=== PATIENT | female | born 1980 | race African-American/Black ===

== ENCOUNTER → 2020-11-07 10:21 | Outpatient (CLI) | payer BC, SELFPAY ==
--- NOTE | ~2020-11-07 | US_ITS ---
EXAMINATION: US pelvic complete DATE: 11/07/2020 10:46 INDICATION: Excessive and frequent menstruation TECHNIQUE: Multiple transabdominal sonographic images of the pelvis were obtained. COMPARISON: None. FINDINGS: The uterus measures 14.5 x 6.9 x 7.5 cm. There are multiple uterine fibroids. The largest i s an 8.4 x 5.3 x 5.3 cm fibroid of the posterior uterine body which exerts mass effect on the endomet rial canal. The endometrial complex measures 9 mm. The right ovary measures 3.8 x 2.0 x 2.7 cm. The l eft ovary measures 4.1 x 3.6 x 3.0 cm. There is normal vascular flow in the ovaries. There is a 7.1 x 3.8 x 5.5 cm fluid collection of the left adnexa. IMPRESSION: 1. Enlarged fibroid uterus. 2. Moderate amount of free fluid in the pelvis. Reviewed, dictated and finalized at location B.
== END ==
PROVIDERS: PCP Physician Assistant; Visit Provider Obstetrics & Gynecology
DX: N92.6 Irregular menstruation, unspecified (principal); D25.9 Leiomyoma of uterus, unspecified
CPT/HCPCS: 76856

== ENCOUNTER → 2020-12-02 01:42 | Outpatient (CLI) | payer BC, SELFPAY ==
[2020-12-02 18:55] LABS: SARS-CoV-2 RNA PCR Negative
== END ==
PROVIDERS: PCP Physician Assistant; Visit Provider Obstetrics & Gynecology
DX: Z01.812 Encounter for preprocedural laboratory examination (principal); Z20.822 Contact with and (suspected) exposure to COVID-19
CPT/HCPCS: C9803; U0003; U0005

== ENCOUNTER 2020-12-02 09:21 | Outpatient (CLI) | payer BC, SELFPAY ==
--- NOTE | 2020-12-02 10:04 | ECG_ITS ---
Measurements Intervals [place] Rate: 72 P: 62 MN: 133 QRS: 34 QRSD: 86 T: 60 QT: 372 QTc: 408 Interpretive Statements SINUS RHYTHM BORDERLINE ST-T WAVE ABNORMALITY- INF/LAT LEADS BORDERLINE ECG Electronically Signed On 12-02-2020 10:34:41 CDT by Shayne Hansen D.O.
[2020-12-02 10:28] LABS: Anion Gap 8 mmol/L (8-16); Blood Urea Nitrogen 19 mg/dL (7-17); Carbon Dioxide 23 mmol/L (22-30); Chloride 108 mmol/L (98-107); Estimated Glomerular Filt Rate > 60; Glucose 93 mg/dL (65-105); Potassium 3.5 mmol/L (3.4-5.0); Sodium 139 mmol/L (137-145)
== END 2020-12-02 09:22 | disposition home or self-care (01) ==
PROVIDERS: PCP Physician Assistant; Visit Provider Anesthesiology
DX: R01.1 Cardiac murmur, unspecified (principal); T50.2X5A Adverse effect of carbonic-anhydrase inhibitors, benzothiadiazides and other diuretics, initial encounter; Z01.818 Encounter for other preprocedural examination; R94.31 Abnormal electrocardiogram [ECG] [EKG]
CPT/HCPCS: 36415; 80048; 93005

== ENCOUNTER 2020-12-05 05:57 | Day surgery (SDC) | payer BC, SELFPAY ==
[2020-12-01 16:57] VITALS: BMI 43.9
--- NOTE | 2020-12-05 11:40 | PM.HPGS ---
History of Present Illness History of Present Illness Consent: Risks, benefits, and alternatives have been discussed and questions answered. Patient agrees to proceed with procedure. Chief complaint: fibroids, abnormal uterine bleeding Narrative: Pratima Espinoza is a 40 year old female A2 with heavy cycles. Patient reports wearing pads and tampons with cycle. Three out of the 7 days are heavy. Review of Systems Constitutional: Constitutional: Reports no additional constitutional complaints and Reports fatigue Cardiovascular: Cardiovascular: Reports no additional cardiovascular complaints Respiratory: Respiratory: Reports no additional respiratory complaints Gastrointestinal: Gastrointestinal: Reports no additional gastrointestinal complaints Genitourinary: Genitourinary: Reports no additional female genitourinary complaints PMFSH Past Medical History Medical History (Updated 12/05/20 @ 11:45 by Jeff Rizo MD) Abnormal uterine bleeding due to leiomyoma of uterus Depression Fibroid GERD (gastroesophageal reflux disease) Migraine Social History Social History Smoking status: Never smoker Alcohol intake: current Living arrangements: alone Spiritual care concerns: No Meds Home Medications and Allergies Home Medications Medication Instructions Recorded Confirmed Type hydrochlorothiazide 12.5 mg PO DAILY PRN 12/01/20 12/01/20 History multivitamin [Daily Multivitamin] 1 tablet PO DAILY 12/01/20 12/01/20 History venlafaxine 150 mg PO DAILY 12/01/20 12/01/20 History Allergies Allergy/AdvReac Type Severity Reaction Status Date / Time latex Allergy Intermediate Hives Verified 12/01/20 17:08 Exam Resp: Auscultation: clear to auscultation bilaterally Cardio: Rate: regular rate Rhythm: regular rhythm GI: Other: enlarged uterus palpable above pubic bone. : Bimanual exam- vagina & uterus: uterine mobility normal and enlarged Assessment and Plan Assessment and plan (1) Abnormal uterine bleeding due to leiomyoma of uterus: Code(s): N93.9 - Abnormal uterine and vaginal bleeding, unspecified; D25.9 - Leiomyoma of uterus, unspecified Status: Acute Assessment and Plan: scheduled for a hysteroscopy dilation and curettage with possible myosure. risk and benefits reviewed with patient in detail.
[2020-12-05] MEDS: ACETAMINOPHEN 500 MG TABLET 1000 MG PO (13:16)
[2020-12-05 13:30] VITALS: BP 147/94; PULSE 93; RESP 18; TEMP 36; O2SAT 98; BMI 43.9
[2020-12-05] MEDS: LACTATED RINGERS 1,000 ML 30 ML IV CONT (13:40)
--- NOTE | 2020-12-05 13:55 | WPDANESEPPF ---
Anes - Initial Pre Proc Eval Procedure: Operation Date: 12/05/20 14:45 Proposed Procedures p Hysteroscopy Dilation and Curettage, Possible Myosure - Jeff Rizo MD Date/Time: 12/05/20 13:55 Surgeon: Jeff Rizo MD Pre Op Diagnosis: fibroids, abnormal uterine bleeding Patient Data Age: 40 Gender: F Height: 1.57 m Weight: 109 kg Allergies Allergy/AdvReac Type Severity Reaction Status Date / Time latex Allergy Intermediate Hives Verified 12/05/20 13:27 Home Medications Medication Instructions Recorded Confirmed Type hydrochlorothiazide 12.5 mg PO DAILY PRN 12/01/20 12/01/20 History multivitamin [Daily Multivitamin] 1 tablet PO DAILY 12/01/20 12/01/20 History venlafaxine 150 mg PO DAILY 12/01/20 12/01/20 History Patient hx anesthesia problems: none Family hx anesthesia problems: none PMFSH Past Medical History Medical History (Updated 12/05/20 @ 11:45 by Jeff Rizo MD) Abnormal uterine bleeding due to leiomyoma of uterus Depression Fibroid GERD (gastroesophageal reflux disease) Migraine Social History Social History Smoking status: Never smoker Alcohol intake: current Living arrangements: alone Spiritual care concerns: No Anes - Eval Final PreProcedure Day of Procedure 12/05/20 13:55 Patient weight: morbidly obese Heart: regular rate and rhythm Lungs: clear to auscultation and normal air movement Airway: Mallampati scale class II Neurological: alert and oriented Last oral intake: >/= 8 hours ASA classification: III Emergent: no Anesthetic plan: proceed Anesthesia type and monitoring: general GIVS and standard monitoring Informed Consent: The patient's anesthetic plan and its attendant risks and benefits were discussed with the patient/family/POA. Questions were solicited and answers provided to the satisfaction of the patient/family/POA.
--- NOTE | 2020-12-05 14:24 | WPDHPUPDATE1 ---
History and Physical Update Update Date/Time: 12/05/20 14:24 History and Physical has been reviewed, including an updated exam of the patient. There are NO changes in the patient's condition. Risks, benefits, and alternatives have been discussed and questions answered. Patient agrees to proceed with procedure.
--- NOTE | 2020-12-05 14:45 | SUR.OPER ---
hysteroscopy irrigation 600ml ivns in and 500ml ivns out
[2020-12-05 14:53] VITALS: BP 132/74; PULSE 91; RESP 16; O2SAT 95
[2020-12-05 15:10] VITALS: BP 141/75; PULSE 70; RESP 16
[2020-12-05 15:20] VITALS: BP 141/87; PULSE 93; RESP 16; O2SAT 95
[2020-12-05 15:50] VITALS: BP 148/94; PULSE 67; RESP 16
--- NOTE | 2020-12-05 15:51 | PM.PROC ---
Procedure Note - Detailed Date of procedure: 12/05/20 Pre-op diagnosis: fibroids, abnormal uterine bleeding Post-op diagnosis: same Procedure performed: hysteroscopy dilation and curettage Description of procedure: Patient was taken to the at the OR with IV running she was prepared and draped in a normal sterile fashion. And placed in a lithotomy position a bivalve speculum was placed into the vagina. The anterior lip of the cervix was grasped with a single-tooth tenaculum the cervix was injected at the 2 and 10 o'clock position with 5cc of lidocaine bilaterally the uterus was sounded to 10 cm and the cervix was serially dilated with Hegar dilators to a 8 . The hysteroscope was introduced and noted polyp in the posterior wall and the anterior wall of the uterus. Hysteroscope was removed and a sharp curettage was performed in all 4 quadrants of the uterus and sent to pathology. Patient tolerated the procedure well was taken to recovery room in stable condition. Anesthesia: local Surgeon: Jeff Rizo MD Estimated blood loss (mL): 10 Drains: No Packing: No Pathology: yes Complications: None Condition: stable Disposition: observation Findings: Large uterus
== END 2020-12-05 16:34 | disposition home or self-care (01) ==
PROVIDERS: PCP Physician Assistant; Visit Provider Obstetrics & Gynecology
PROC: 0U5B8ZZ Destruction of Endometrium, Via Natural or Artificial Opening Endoscopic (ICD-10-PCS; CPT 58563; principal; 2020-12-05 14:45)
DX: N93.9 Abnormal uterine and vaginal bleeding, unspecified (principal); N84.0 Polyp of corpus uteri; K21.9 Gastro-esophageal reflux disease without esophagitis; F32.9 Major depressive disorder, single episode, unspecified; E66.01 Morbid (severe) obesity due to excess calories; Z68.41 Body mass index [BMI] 40.0-44.9, adult
CPT/HCPCS: 58558; 88305; A9270; J2250; J2704; J3010; J7120

== ENCOUNTER → 2021-02-03 00:42 | Outpatient (CLI) | payer BC, SELFPAY ==
[2021-02-03 17:38] LABS: SARS-CoV-2 RNA PCR Negative
== END ==
PROVIDERS: PCP Physician Assistant; Visit Provider Obstetrics & Gynecology
DX: Z01.812 Encounter for preprocedural laboratory examination (principal); Z20.822 Contact with and (suspected) exposure to COVID-19
CPT/HCPCS: C9803; U0003; U0005

== ENCOUNTER 2021-02-03 08:52 | Outpatient (CLI) | payer BC, SELFPAY ==
[2021-02-03 09:32] LABS: Hematocrit 35.2 % (37.0-47.0); Hemoglobin 10.2 g/dL (12.0-15.0)
[2021-02-03 09:51] LABS: Anion Gap 8 mmol/L (8-16); Blood Urea Nitrogen 13 mg/dL (7-17); Calcium 8.8 mg/dL (8.4-10.2); Carbon Dioxide 26 mmol/L (22-30); Chloride 104 mmol/L (98-107); Estimated Glomerular Filt Rate > 60; Glucose 94 mg/dL (65-105); Potassium 4.1 mmol/L (3.4-5.0); Sodium 138 mmol/L (137-145)
== END 2021-02-03 08:53 | disposition home or self-care (01) ==
LOC: ANHSURGERY 08:55
PROVIDERS: Anesthesiology; PCP Physician Assistant; Visit Provider Obstetrics & Gynecology
DX: D21.9 Benign neoplasm of connective and other soft tissue, unspecified (principal); D64.9 Anemia, unspecified; T50.2X5A Adverse effect of carbonic-anhydrase inhibitors, benzothiadiazides and other diuretics, initial encounter; Z01.818 Encounter for other preprocedural examination
CPT/HCPCS: 36415; 80048; 85014; 85018; 86850; 86900; 86901

== ENCOUNTER 2021-02-06 07:38 | Inpatient (IN) | payer BC, SELFPAY ==
[2021-01-30 18:45] VITALS: BMI 44.8
--- NOTE | 2021-02-05 14:35 | PM.IMHP ---
H&P: HPI History of Present Illness Date/Time: 02/05/21 14:35 40 y/o A2 with long history of heavy cycles with fibroids. Patient reports cycles are getting heavier and harder to deal with bleeding. Patient reports wearing pad and tampo a the sametime changing every 1-2 hours with blood clots. Patient reports also missing work due to this. An ultrasound shows multiple fibroid uterus. Chief Complaint: heavy cycles Review of Systems Constitutional: Constitutional: Reports fatigue Genitourinary: Genitourinary: Reports nocturia, Reports dysmenorrhea and Reports pelvic pain PMF Past Medical History Medical History (Updated 02/05/21 @ 14:40 by Jeff Rizo MD) Abnormal uterine bleeding due to leiomyoma of uterus Arthritis Depression Fibroid GERD (gastroesophageal reflux disease) HTN (hypertension) Migraine Morbid obesity with BMI of 40.0-44.9, adult Status post hysteroscopy Social History Social History Smoking status: Never smoker Second hand tobacco smoke exposure: No Alcohol intake: current Alcohol use details: occassionally/socially Substance use: never Substance use type: does not use Spiritual care concerns: No Meds Home Medications and Allergies Home Medications Medication Instructions Recorded Confirmed Type hydrochlorothiazide 12.5 mg PO PRN PRN 12/01/20 01/30/21 History venlafaxine 150 mg PO DAILY 12/01/20 01/30/21 History [id number] sodium 1 tablet PO DAILY 01/30/21 01/30/21 History [Ferralet 90] Allergies Allergy/AdvReac Type Severity Reaction Status Date / Time latex Allergy Intermediate Hives Verified 01/30/21 20:00 artificial cinnamon Allergy Severe Anaphylaxis Uncoded 01/30/21 20:00 Exam Const: General: cooperative and well groomed Nutritional Appearance: obese Orientation/consciousness: patient oriented x3 Chest: Breast/axilla inspection: normal inspection of the breasts Resp: Auscultation: clear to auscultation bilaterally Cardio: Rate: regular rate Rhythm: regular rhythm GI: Inspection: obesity : External Female Exam: normal external appearance Speculum Exam - Vagina: normal appearance of the vagina Speculum Exam - Cervix: Cervical os closed and Nulliparous cervix present Bimanual exam- vagina & uterus: enlarged Assessment and Plan Assessment and plan (1) Abnormal uterine bleeding due to leiomyoma of uterus: Code(s): N93.9 - Abnormal uterine and vaginal bleeding, unspecified; D25.9 - Leiomyoma of uterus, unspecified Status: Acute Assessment and Plan: scheduled for a Total abdominal hysterectomy. Risk and benefits reviewed with patient in detail including bleeding, infection, trauma , and damage to surrounding organs,
--- NOTE | 2021-02-05 14:36 | WPDANESEPPF ---
Anes - Initial Pre Proc Eval Procedure: Operation Date: 02/06/21 12:00 Proposed Procedures p Total Abdominal Hysterectomy - Jeff Rizo MD Date/Time: 02/05/21 14:36 Surgeon: Jeff Rizo MD Pre Op Diagnosis: fibroids Patient Data Age: 40 Gender: F Height: 1.57 m Weight: 111.13 kg Allergies Allergy/AdvReac Type Severity Reaction Status Date / Time latex Allergy Intermediate Hives/Swelling Verified 02/06/21 10:34 with condoms artificial cinnamon Allergy Severe Anaphylaxis Uncoded 01/30/21 20:00 Home Medications Medication Instructions Recorded Confirmed Type hydrochlorothiazide 12.5 mg PO PRN PRN 12/01/20 02/06/21 History venlafaxine 150 mg PO DAILY 12/01/20 02/06/21 History [id number] sodium 1 tablet PO DAILY 01/30/21 02/06/21 History [Ferralet 90] Patient hx anesthesia problems: none Family hx anesthesia problems: none PMFSH Past Medical History Medical History (Updated 02/05/21 @ 14:40 by Jeff Rizo MD) Abnormal uterine bleeding due to leiomyoma of uterus Arthritis Depression Fibroid GERD (gastroesophageal reflux disease) HTN (hypertension) Migraine Morbid obesity with BMI of 40.0-44.9, adult Status post hysteroscopy Social History Social History Smoking status: Never smoker Second hand tobacco smoke exposure: No Alcohol intake: current Alcohol use details: occassionally/socially Substance use: never Substance use type: does not use Living arrangements: alone Spiritual care concerns: No Anes - Eval Final PreProcedure Day of Procedure 02/05/21 14:36 Patient weight: morbidly obese Heart: regular rate and rhythm Lungs: clear to auscultation and normal air movement Airway: Mallampati scale class II Neurological: alert and oriented Last oral intake: >/= 8 hours ASA classification: III Emergent: no Anesthetic plan: proceed Anesthesia type and monitoring: general ETT Informed Consent: The patient's anesthetic plan and its attendant risks and benefits were discussed with the patient/family/POA. Questions were solicited and answers provided to the satisfaction of the patient/family/POA.
[2021-02-06] VITALS (14 sets, daily range): BP systolic 125–155; BP diastolic 73–95; PULSE 67–99; RESP 14–28; TEMP 36.2–37.3; O2SAT 93–100
[2021-02-06] MEDS: ACETAMINOPHEN 500 MG TABLET 1000 MG PO (11:04)
[2021-02-06] MEDS: LACTATED RINGERS 1,000 ML 30 ML IV CONT ×2 (11:05→14:41)
--- NOTE | 2021-02-06 11:44 | WPDHPUPDATE1 ---
History and Physical Update Update Date/Time: 02/06/21 11:44 History and Physical has been reviewed, including an updated exam of the patient. There are NO changes in the patient's condition. Risks, benefits, and alternatives have been discussed and questions answered. Patient agrees to proceed with procedure.
[2021-02-06] MEDS: KETOROLAC 15 MG/ML VIAL (*BKC) IV PUSH (11:53)
[2021-02-06] MEDS: ceFAZolin 2 GM/D5W 50 ML 2 GM/50 ML BAG IVPB (12:40)
[2021-02-06] MEDS: fentaNYL CITRATE INJ (*CRX) 100 MCG/2 ML VIAL 25 MCG IV PUSH ×6 (15:09→16:23)
--- NOTE | 2021-02-06 15:25 | SUR.PHASEI ---
[facility]AR faxed at [phone], OB 2nd service secretary notified
[2021-02-06] MEDS: oxyCODONE HCL (*CRX) 5 MG TAB IR PO (16:40)
[2021-02-06] MEDS: MORPHINE SULFATE (*CRX) 4 MG/ML INJ IV PUSH (17:31)
[2021-02-06] MEDS: KETOROLAC 30 MG/ML VIAL (*BKC) IV PUSH ×2 (17:38→23:37)
[2021-02-06] MEDS: METOCLOPRAMIDE HCL INJ 10 MG/2 ML VIAL IV PUSH (17:42)
[2021-02-06] MEDS: HYDROcodone/acetaminophen (*CRX) 10-325 MG TABLET 1 TAB PO (18:52)
[2021-02-06] MEDS: DEXTROSE 5%/LACTATED RINGERS 1,000 ML 125 ML IV CONT (23:39)
[2021-02-07] VITALS: BP 123/72; PULSE 110; RESP 20; TEMP 36.9; O2SAT 95
[2021-02-07 04:30] VITALS: BP 123/78; PULSE 98; RESP 20; TEMP 36.7; O2SAT 99
[2021-02-07] MEDS: KETOROLAC 30 MG/ML VIAL (*BKC) IV PUSH (05:54)
[2021-02-07 06:06] LABS: Basophils Percent Auto 0.1 % (0.2-1.2); Hematocrit 28.2 % (37.0-47.0); Hemoglobin 8.4 g/dL (12.0-15.0); Immature Granulocyte Absolute 0.08 K/mm3 (0.00-0.031); Immature Granulocyte Percent A 0.5 % (0-0.5); Lymphocytes Absolute Auto 1.53 K/mm3 (0.9-3.2); Mean Corpuscular HGB Conc 29.8 g/dl (32-36); Mean Corpuscular Hemoglobin 22.2 pg (26-34); Mean Corpuscular Volume 74.6 fl (80-100); Mean Platelet Volume 10.5 fl (7.4-10.4); Monocytes Absolute Auto 0.8 K/mm3 (0.1-0.6); Monocytes Percent Auto 5.3 % (2.6-8.5); Neutrophils Absolute Auto 12.8 K/mm3 (1.3-6.7); Neutrophils Percent Auto 84.1 % (45.5-73.1); Platelet Count Result 238 k/mm3 (150-375); Red Blood Count 3.78 M/mm3 (4.2-5.4); Red Cell Distribution Width 20.4 % (11.5-14.5); White Blood Count 15.3 K/mm3 (4.5-10.0)
[2021-02-07 06:18] LABS: Anion Gap 8 mmol/L (8-16); Blood Urea Nitrogen 11 mg/dL (7-17); Calcium 8.6 mg/dL (8.4-10.2); Carbon Dioxide 25 mmol/L (22-30); Chloride 102 mmol/L (98-107); Estimated CRCL calculation 88 ml/min; Estimated Glomerular Filt Rate > 60; Glucose 146 mg/dL (65-110); Potassium 4.2 mmol/L (3.4-5.0); Sodium 135 mmol/L (137-145)
[2021-02-07 08:30] VITALS: BP 129/74; PULSE 97; RESP 22; TEMP 37.1; O2SAT 100
[2021-02-07 08:36] LABS: Hypochromasia 2+ (NORMAL); Large Platelets Present; Platelet Estimate Adequate (Adequate)
--- NOTE | 2021-02-07 09:34 | PM.GYNPNOP ---
SUPERVISOR FILES - A/P Postoperative Procedures: Procedures Operation Date: 02/06/21 12:00 Actual Procedure Side Surgeon p Total Abdominal Hysterectomy Not Applicable Jeff Rizo MD Postoperative day: 1 Postoperative status: doing well Postoperative plan: routine post-op care Time Spent With Patient Time: Total time spent is greater than 50% in coordination of care (as documented) at patient's floor/unit and/or counseling patient: Time with patient: less than 15 minutes SUPERVISOR FILES- PN:Subj Post-Op Subjective Date/time seen: 02/07/21 09:34 Subjective: patient reports feeling better, patient has no complaints and pain is well controlled Exam Narrative: Exam Narrative: bandage removed incision c/d/i abdomen soft, appropriately tender SUPERVISOR FILES - PN: Obj Data Vital Signs Vital Signs: Vital Signs - 24 hr 02/06/21 10:37 02/06/21 14:41 02/06/21 14:55 Temperature 97.2 F L 99.1 F Pulse Rate 85 80 75 Respiratory Rate 16 14 28 H Blood Pressure 138/85 141/83 H 129/80 Pulse Oximetry 100 99 98 02/06/21 15:10 02/06/21 15:25 02/06/21 15:40 Temperature Pulse Rate 74 70 67 Respiratory Rate 28 H 24 H 26 H Blood Pressure 135/87 129/82 130/81 Pulse Oximetry 96 98 98 02/06/21 15:55 02/06/21 16:10 02/06/21 16:25 Temperature Pulse Rate 75 72 78 Respiratory Rate 22 H 22 H 18 Blood Pressure 125/86 125/79 128/81 Pulse Oximetry 100 99 99 02/06/21 16:40 02/06/21 16:50 02/06/21 17:00 Temperature 97.9 F Pulse Rate 72 72 96 Respiratory Rate 16 16 16 Blood Pressure 130/80 155/95 H Pulse Oximetry 99 99 95 02/06/21 18:45 02/06/21 20:00 02/07/21 00:00 Temperature 98.5 F 98.5 F Pulse Rate 99 98 110 H Respiratory Rate 20 20 Blood Pressure 149/85 H 141/73 H 123/72 Pulse Oximetry 93 96 95 02/07/21 04:30 02/07/21 08:30 Temperature 98.1 F 98.7 F Pulse Rate 98 97 Respiratory Rate 20 22 H Blood Pressure 123/78 129/74 Pulse Oximetry 99 100 Intake/Output Intake/Output: Intake & Output 02/04/21 02/05/21 02/06/21 02/07/21 23:59 23:59 23:59 23:59 Intake Total 300 400 Output Total 150 900 Balance 150 -500 Meds/Results Medications: Active Medications Generic Name Dose Route Start Last Admin Trade Name Freq PRN Reason Stop Dose Admin Hydrocodone Bitart/Acetaminophen 1 tab 02/06/21 14:23 Hydrocodone/Acetaminophen (*Crx) 5-325 Mg Tablet PO Q3H PRN Pain Rated 5 or Less Hydrocodone Bitart/Acetaminophen 1 tab 02/06/21 14:23 02/06/21 18:52 Hydrocodone/Acetaminophen (*Crx) 10-325 Mg Tablet PO 1 tab Q3H PRN Administration Pain Rated 6 or Greater Hydrochlorothiazide 12.5 mg 02/06/21 14:25 Hydrochlorothiazide 12.5 Mg Capsule PO PRN PRN Edema Ibuprofen 600 mg 02/06/21 14:23 Ibuprofen 600 Mg Tablet PO Q6H PRN Cramping Ketorolac Tromethamine 30 mg 02/06/21 14:23 02/07/21 05:54 Ketorolac 30 Mg/Ml Vial (*Bkc) IV PUSH 02/11/21 14:24 30 mg Q6H PRN Administration Pain Rated 4-6 Metoclopramide HCl 10 mg 02/06/21 14:23 02/06/21 17:42 Metoclopramide Hcl Inj 10 Mg/2 Ml Vial IV PUSH 10 mg Q6H PRN Administration Nausea Morphine Sulfate 4 mg 02/06/21 14:23 02/06/21 17:31 Morphine Sulfate (*Crx) 4 Mg/Ml Inj IV PUSH 4 mg Q4H PRN Administration Pain Rated 7-10 Naloxone HCl 0.1 mg 02/06/21 14:23 Naloxone Hcl 0.4 Mg/Ml Vial IV PUSH Q2M PRN Respiratory rate less than 10 Ondansetron HCl 4 mg 02/06/21 14:23 Ondansetron Inj 4 Mg/2 Ml Vial IV PUSH Q6H PRN Nausea Simethicone 80 mg 02/06/21 14:23 Simethicone 80 Mg Tab.Chew PO Q2H PRN Gas Venlafaxine HCl 150 mg 02/07/21 09:00 Venlafaxine Hcl Xr 75 Mg Cap.Er.24h PO DAILY NATALIE Labs CBC & Chem 7: 02/07/21 04:57 02/07/21 04:57 Labs: Laboratory Results - last 24 hr 02/07/21 02/07/21 04:57 04:57 WBC 15.3 H RBC 3.78 L Hgb 8.4 L Hct 28.2 L MCV 74.6 L MCH 22.2 L
[2021-02-07] MEDS: HYDROcodone/acetaminophen (*CRX) 10-325 MG TABLET 1 TAB PO ×4 (09:54→23:24)
[2021-02-07] MEDS: VENLAFAXINE HCL XR 75 MG CAP.ER.24H 150 MG PO (09:54)
--- NOTE | 2021-02-07 11:34 | P.PNAN_ITS ---
Anes - Prog Note Post-Op Date/Time: 02/07/21 11:34 Cardiovascular status: normal Respiratory status: normal Airway patency: baseline Mental status: baseline Post-Op hydration status: normal Vital Signs: Last Vital Signs Temp 37.1 C 02/07/21 08:30 Pulse 97 02/07/21 08:30 Resp 22 H 02/07/21 08:30 BP 129/74 02/07/21 08:30 Pulse Ox 100 02/07/21 08:30 Pain Score (VAS): 0 I/O: Intake & Output 02/06/21 02/07/21 02/07/21 23:59 07:59 15:59 Intake Total 250 400 Output Total 150 900 100 Balance 100 -500 -100 Laboratory Tests 02/07/21 04:57 02/07/21 04:57 02/07/21 02/07/21 04:57 04:57 WBC 15.3 H RBC 3.78 L Hgb 8.4 L Hct 28.2 L MCV 74.6 L MCH 22.2 L MCHC 29.8 L RDW 20.4 H Plt Count 238 MPV 10.5 H Immature Gran % (Auto) 0.5 Neut % (Auto) 84.1 H Lymph % (Auto) 10.0 L [place] % (Auto) 5.3 Eos % (Auto) 0.0 Baso % (Auto) 0.1 L Lymph # (Auto) 1.53 [place] # (Auto) 0.8 H Eos # (Auto) 0.0 Baso # (Auto) 0.0 Abs Immat Gran (auto) 0.08 H Absolute Neuts (auto) 12.8 H Absolute Nucleated RBC 0.0 Nucleated RBC % 0.0 Platelet Estimate Adequate Large Platelets Present Hypochromasia 2+ Sodium 135 L Potassium 4.2 Chloride 102 Carbon Dioxide 25 Anion Gap 8 BUN 11 Creatinine 0.90 Estim Creat Clear Calc 88 Estimated GFR > 60 Glucose 146 H Calcium 8.6 Post-procedural complaints: none Patient Feedback: Patient satisfied with anesthetic care.
[2021-02-07 12:00] VITALS: BP 125/78; PULSE 89; RESP 20; TEMP 36.8; O2SAT 99
[2021-02-07] MEDS: IBUPROFEN 600 MG TABLET PO ×2 (13:46→23:23)
--- NOTE | 2021-02-07 19:13 | OP_ITS ---
DATE OF PROCEDURE: 02/06/2021 PREOPERATIVE DIAGNOSIS: Abnormal uterine bleeding, fibroid. POSTOPERATIVE DIAGNOSIS: Abnormal uterine bleeding, fibroid. PROCEDURE: Total abdominal hysterectomy. ESTIMATED BLOOD LOSS: 150 mL. URINE OUTPUT: 150 cc of clear urine. FINDINGS: A large fibroid uterus. DESCRIPTION OF PROCEDURE: The patient was prepped and draped in the usual sterile fashion for abdominal procedure. An incision was made into the abdomen down to the subcutaneous tissue, muscular fascia, and peritoneum. Once inside the abdominal cavity a self-retaining retractor was placed to expose the pelvic cavity and the bowel packed away with 3 lap sponges. The uterus was then identified and grasped at the fundus with a single-tooth tenaculum with upward traction. The round ligaments on either side were identified and individually dissected and ligated with 0 Vicryl suture and divided. This allowed us to then create a bladder flap by both blunt and sharp dissection. The fallopian tube and ovarian ligament were isolated through the broad ligament from the uterine body and ligated with LigaSure device and divide as well. We then skeletonized the uterine vessels on either side and carefully dissected the bladder flap anteriorly. Posteriorly, the peritoneum was dissected down for the uterosacral ligament pain. The LigaSure was then placed at each isthmic portion of the cervical body junction where the uterine arteries joined the uterus. These were clamped and ligated and divided with the LigaSure device. The remainder of the uterus was then removed by clamping ligation technique using the LigaSure device. For better exposure secondary to the enlarged uterus, the uterus was transected at the cervix. The uterosacral ligaments were then clamped, transected, and suture ligated with 0 Vicryl suture. The cervix was then removed. The vaginal cuff was closed in the 0 Vicryl suture in a running locked fashion. Hemostasis was then inspected and secured throughout the entire area. The abdomen was copiously irrigated and the pedicles were reinspected for hemostasis. Ovaries were left in situ and descended to the sidewalls. The lap sponges were then removed and the self retraining retractor was removed. The sponge count was correct x2 at this time and the Blake catheter noted clear urine. The fascia was then closed with 0 Vicryl in a running continuous fashion. The subcutaneous tissue was irrigated and closed with 3-0 plain gut. The skin was closed with 4-0 Vicryl suture. Hemostasis was assured throughout the entire layers and the incision was covered with Dermabond glue. The patient tolerated the procedure well and was taken to recovery room in stable condition. Jacobo I MT: Aramis
[2021-02-07 20:00] VITALS: BP 120/76; PULSE 81; RESP 18; TEMP 36.3; O2SAT 94
[2021-02-08] MEDS: IBUPROFEN 600 MG TABLET PO (06:18)
[2021-02-08] MEDS: HYDROcodone/acetaminophen (*CRX) 10-325 MG TABLET 1 TAB PO (06:19)
[2021-02-08 09:00] VITALS: BP 135/83; PULSE 98; RESP 20; TEMP 36
--- NOTE | 2021-02-08 09:24 | PM.GYNPNOP ---
INTERNAL MEDICINE VETERINARY TECHNICIAN - A/P Postoperative Procedures: Procedures Operation Date: 02/06/21 12:00 Actual Procedure Side Surgeon p Total Abdominal Hysterectomy Not Applicable Jeff Rizo MD Postoperative day: 2 Postoperative status: doing well Postoperative plan: routine post-op care and discharge Time Spent With Patient Time: Total time spent is greater than 50% in coordination of care (as documented) at patient's floor/unit and/or counseling patient: Time with patient: less than 15 minutes INTERNAL MEDICINE VETERINARY TECHNICIAN- PN:Subj Post-Op Subjective Date/time seen: 02/08/21 09:24 Subjective: patient reports feeling better, patient has no complaints and pain is well controlled Exam Narrative: Exam Narrative: inc c/d/i INTERNAL MEDICINE VETERINARY TECHNICIAN - PN: Obj Data Vital Signs Vital Signs: Vital Signs - 24 hr 02/07/21 12:00 02/07/21 20:00 02/08/21 09:00 Temperature 98.3 F 97.3 F L 96.8 F L Pulse Rate 89 81 98 Respiratory Rate 20 18 20 Blood Pressure 125/78 120/76 135/83 Pulse Oximetry 99 94 Intake/Output Intake/Output: Intake & Output 02/05/21 02/06/21 02/07/21 02/08/21 23:59 23:59 23:59 23:59 Intake Total 300 400 Output Total 150 1550 Balance 150 -1150 Meds/Results Medications: Active Medications Generic Name Dose Route Start Last Admin Trade Name Freq PRN Reason Stop Dose Admin Hydrocodone Bitart/Acetaminophen 1 tab 02/06/21 14:23 Hydrocodone/Acetaminophen (*Crx) 5-325 Mg Tablet PO Q3H PRN Pain Rated 5 or Less Hydrocodone Bitart/Acetaminophen 1 tab 02/06/21 14:23 02/08/21 06:19 Hydrocodone/Acetaminophen (*Crx) 10-325 Mg Tablet PO 1 tab Q3H PRN Administration Pain Rated 6 or Greater Hydrochlorothiazide 12.5 mg 02/06/21 14:25 Hydrochlorothiazide 12.5 Mg Capsule PO PRN PRN Edema Ibuprofen 600 mg 02/06/21 14:23 02/08/21 06:18 Ibuprofen 600 Mg Tablet PO 600 mg Q6H PRN Administration Cramping Ketorolac Tromethamine 30 mg 02/06/21 14:23 02/07/21 05:54 Ketorolac 30 Mg/Ml Vial (*Bkc) IV PUSH 02/11/21 14:24 30 mg Q6H PRN Administration Pain Rated 4-6 Metoclopramide HCl 10 mg 02/06/21 14:23 02/06/21 17:42 Metoclopramide Hcl Inj 10 Mg/2 Ml Vial IV PUSH 10 mg Q6H PRN Administration Nausea Morphine Sulfate 4 mg 02/06/21 14:23 02/06/21 17:31 Morphine Sulfate (*Crx) 4 Mg/Ml Inj IV PUSH 4 mg Q4H PRN Administration Pain Rated 7-10 Naloxone HCl 0.1 mg 02/06/21 14:23 Naloxone Hcl 0.4 Mg/Ml Vial IV PUSH Q2M PRN Respiratory rate less than 10 Ondansetron HCl 4 mg 02/06/21 14:23 Ondansetron Inj 4 Mg/2 Ml Vial IV PUSH Q6H PRN Nausea Simethicone 80 mg 02/06/21 14:23 Simethicone 80 Mg Tab.Chew PO Q2H PRN Gas Venlafaxine HCl 150 mg 02/07/21 09:00 02/07/21 09:54 Venlafaxine Hcl Xr 75 Mg Cap.Er.24h PO 150 mg DAILY NATALIE Administration Labs CBC & Chem 7: 02/07/21 04:57 02/07/21 04:57
--- NOTE | 2021-04-24 10:00 | P.DS_ITS ---
DS: Admitting Diagnosis Discharge Date 02/08/21 Admitting Diagnosis fibroids menorrhagia DS: Discharge Diagnosis Discharge Diagnosis (1) Abnormal uterine bleeding due to leiomyoma of uterus: Code(s): N93.9 - Abnormal uterine and vaginal bleeding, unspecified; D25.9 - Leiomyoma of uterus, unspecified Status: Acute DS: Summary Hospital Course Hospital Course: 40 y/o A2 with long history of heavy cycles with fibroids. Patient reports cycles are getting heavier and harder to deal with bleeding. Patient reports wearing pad and tampo a the sametime changing every 1-2 hours with blood clots. Patient reports also missing work due to this. An ul trasound shows multiple fibroid uterus. Patient underwent a ALCON see operative note for details. Patient postoperative stay was uncomplicated and discharged on day 2 with prescsciption for norco5/325 po q hours prn. F/u in 1 week. Time Spent with Patient Time attestation: Total time spent providing and/or coordinating discharge services: DS: Data Data Completed and Pending Completed studies during hospitalization: Pending at discharge 02/06/21 14:21 Surgical [PTH] Routine Discharge Plan Discharge Attending physician on discharge: Jeff Rizo Discharging Clinician: Maite Tomlin Anticipated Discharge Date/Time: 02/08/21 09:25 Patient Disposition: Home, Self-Care Activity: may shower, may drive after 2 weeks and pelvic rest Diet: regular Wound Care Instructions: incision open to air Patient Instructions: Hysterectomy (DC) Stand Alone Forms: General Discharge Information Follow-up/Referrals: Maite Tomlin MD [Physician] - 1 Week Discharge Medications: New hydrocodone-acetaminophen 5-325 mg Tablet 1 tablet PO Q3H PRN (Reason: Pain Rated 5 Or Less) Qty: 20 RF: 0 Continued [id number] sodium 93-3-50-120-50 av-dc-skd-mg-mg Tablet 1 tablet PO DAILY RF: 0 hydrochlorothiazide 12.5 mg Tablet 12.5 mg PO PRN PRN (Reason: Edema) RF: 0 venlafaxine 150 mg Tablet Extended Release 24hr 150 mg PO DAILY RF: 0 Date of admission: 02/06/21 07:38 Primary Care Provider: RafaelArabella Admitting Provider: Jeff Rizo Attending physician on admission: Maite Tomlin Condition: Stable
== END 2021-02-08 10:35 | disposition home or self-care (01) | DRG 742 ==
LOC: ANHSURGERY 10:19 → ANHOB2 02-08 09:27
PROVIDERS: Admitting Provider Obstetrics & Gynecology; PCP Physician Assistant; Visit Provider Obstetrics & Gynecology Gynecology
PROC: 0UT94ZZ Resection of Uterus, Percutaneous Endoscopic Approach (ICD-10-PCS; principal; 2021-02-06 12:00)
DX: D25.9 Leiomyoma of uterus, unspecified (principal); Z68.42 Body mass index [BMI] 45.0-49.9, adult; N93.9 Abnormal uterine and vaginal bleeding, unspecified; M19.90 Unspecified osteoarthritis, unspecified site; F32.9 Major depressive disorder, single episode, unspecified; K21.9 Gastro-esophageal reflux disease without esophagitis; I10 Essential (primary) hypertension; E66.01 Morbid (severe) obesity due to excess calories
CPT/HCPCS: 36415; 80048; 85025; 88307; A9270; J0330; J0690; J1100; J1170; J1885; J2250; J2270; J2370; J2405; J2704; J2710; J2765; J3010; J7120; J7121

== ENCOUNTER 2021-07-23 11:49 | Emergency (ER) | payer BC, SELFPAY ==
[2021-07-23 13:10] VITALS: BP 147/90; PULSE 103; RESP 20; TEMP 36.9; O2SAT 100
--- NOTE | 2021-07-23 14:05 | ED.URI ---
HPI - URI/Sore Throat General Chief Complaint: Upper Respiratory Infection Stated Complaint: cold/flu Source: patient and RN notes reviewed Limitations: no limitations History of Present Illness HPI Narrative: The vaccinated patient, a non-smoker/occasional drinker and school worker, presents with shorter 2 days of chills, cough, scratchy throat. No earache; no loss of taste/smell, CP, vomiting/diarrhea , S OB. Vital signs remarkable for pulse 103, BP 147/90. The patient has been informed that they may have pre-hypertension or Hypertension based on a BP reading in the department. I recommend that the patient call the primary care provider listed on their discharge instructions or a physician of their choice this week to arrange follow up for further evaluation of possible pre-hypertension or Hypertension Related Data Allergies Allergy/AdvReac Type Severity Reaction Status Date / Time latex Allergy Intermediate Hives/Swelling Verified 02/06/21 10:34 with condoms artificial cinnamon Allergy Severe Anaphylaxis Uncoded 01/30/21 20:00 Review of Systems Review of Systems: General/Constitutional: No weight loss,fever Eyes: N0: Redness,discharge Ears/Nose/Throat: No: Epistaxis,ear discharge Respiratory: Denies: Hemoptysis Gastrointestinal: No Vomiting, Bleeding-rectal Skin: No Lumps, eruption Neurologic: No Focal Weakness,Sz Hematologic: Denies: Petechiae/Purpura Psychiatric: No: Suicida ideationl All Other Systems: Reviewed and Negative PMFSH Past Medical History Medical History (Updated 07/23/21 @ 15:05 by Sudhakar Kelsey MD) Abnormal uterine bleeding due to leiomyoma of uterus Arthritis Depression Fibroid GERD (gastroesophageal reflux disease) HTN (hypertension) Migraine Morbid obesity with BMI of 40.0-44.9, adult Status post hysteroscopy Social History Social History Smoking status: Never smoker Second hand tobacco smoke exposure: No Alcohol intake: current Alcohol use details: occassionally/socially Substance use: never Substance use type: does not use Spiritual care concerns: No Comments At time of signature, agree with nursing past medical, surgical, social and family history. There is no relevant family history pertinent to the presenting complaint Exam Narrative: General Appearance: Well appearing, obese/well nourished EYE: PERRLA, Conjunctiva clear Ears: Auditory canal normal, TM normal Nose: Rhinorrhea, Mucousal erythema Mouth/Throat: MM moist, Uvula midline, Pharyngeal erythema Neck: Supple, No adenopathy Respiratory: No respiratory distress, distant BS equally decreased at bases, Clear to auscultation Cardiovascular: RRR, No JVD Musculoskeletal: Non tender, Normal strength Skin: Warm, Dry Neurological: A&O x3, CN II-XII intact Psychiatric: Normal mood, Normal affect Course Vital Signs Vital signs: Vital Signs Temperature 98.5 F 07/23/21 13:10 Pulse Rate 103 H 07/23/21 13:10 Respiratory Rate 20 07/23/21 13:10 Blood Pressure 147/90 H 07/23/21 13:10 Pulse Oximetry 100 07/23/21 13:10 Temperature 98.5 F 07/23/21 13:10 Pulse Rate 103 H 07/23/21 13:10 Respiratory Rate 20 07/23/21 13:10 Blood Pressure 147/90 H 07/23/21 13:10 Pulse Oximetry 100 07/23/21 13:10 Discharge Plan Discharge Clinical Impression: Productive cough Patient Disposition: Home, Self-Care Condition: Stable Instructions: Rhinosinusitis (ED) Prescriptions: New azithromycin 250 mg tablet See Rx Instructions .ROUTE .COMPLEX Qty: 6 RF: 0 benzonatate 100 mg capsule 100 mg PO TID PRN (Reason: cough) Qty: 20 RF: 2 codeine-guaifenesin 10-100 mg/5 mL liquid 7.5 ml PO BID-TID PRN (Reason: cough) Qty: 118 RF: 0 azelastine 137 mcg (0.1 %) aerosol,spray 137 mcg NASAL Q12H Qty: 30 RF: 0 Other Ambulatory Orders: SARS-CoV-2 RNA, Qual RT-PCR (Routine) Location:
== END 2021-07-23 14:12 | disposition home or self-care (01) ==
PROVIDERS: Emergency Provider Emergency Medicine; PCP Physician Assistant
DX: R05.9 Cough, unspecified (principal); Z20.822 Contact with and (suspected) exposure to COVID-19; M19.90 Unspecified osteoarthritis, unspecified site; K21.9 Gastro-esophageal reflux disease without esophagitis; I10 Essential (primary) hypertension; E66.01 Morbid (severe) obesity due to excess calories; Z68.41 Body mass index [BMI] 40.0-44.9, adult
CPT/HCPCS: 99213; G0463

== ENCOUNTER → 2021-07-27 01:33 | Outpatient (CLI) | payer BC, SELFPAY ==
[2021-07-27 21:23] LABS: SARS-CoV-2 RNA PCR Positive
== END ==
PROVIDERS: PCP Physician Assistant; Visit Provider Emergency Medicine
DX: U07.1 COVID-19 (principal)
CPT/HCPCS: C9803; U0003; U0005

== ENCOUNTER 2022-08-03 16:28 | Inpatient (IN) | payer BC, SELFPAY ==
[2022-08-03 16:45] VITALS: BP 148/101; PULSE 125; RESP 20; TEMP 36.3; O2SAT 95
--- NOTE | 2022-08-03 16:53 | PC.NURSE ---
BG read high on glucometer.
[2022-08-03 17:36] LABS: Basophils Absolute Auto 0.1 K/mm3 (0.0-0.1); Basophils Percent Auto 0.6 % (0.2-1.2); Hematocrit 46.9 % (37.0-47.0); Hemoglobin 14.4 g/dL (12.0-15.0); Immature Granulocyte Absolute 0.02 K/mm3 (0.00-0.031); Immature Granulocyte Percent A 0.2 % (0-0.5); Lymphocytes Absolute Auto 1.99 K/mm3 (0.9-3.2); Lymphocytes Percent Auto 23.8 % (18.3-44.2); Mean Corpuscular HGB Conc 30.7 g/dl (32-36); Mean Corpuscular Hemoglobin 25.1 pg (26-34); Mean Corpuscular Volume 81.7 fl (80-100); Monocytes Absolute Auto 0.4 K/mm3 (0.1-0.6); Monocytes Percent Auto 4.2 % (2.6-8.5); Neutrophils Percent Auto 71.2 % (45.5-73.1); Platelet Count Result 323 k/mm3 (150-375); Red Blood Count 5.74 M/mm3 (4.2-5.4); Red Cell Distribution Width 14.2 % (11.5-14.5); White Blood Count 8.4 K/mm3 (4.5-10.0)
[2022-08-03 17:41] LABS: Add Urine Microscopic? YES; Appearance Urine Clear (Clear); Bilirubin Urine Negative (Negative); Blood Urine 1+ (Negative); Color Urine Yellow (Yellow); Glucose Urine UA 3+ mg/dL (Negative); Ketones Urine 1+ mg/dL (Negative); Leukocyte Esterase Ur Negative LEU/UL (Negative); Nitrate Urine Negative (Negative); Protein Urine Trace mg/dL (Negative); Specific Grav Ur <= 1.005 (1.001-1.035); Urobilinogen Urine 0.2 mg/dL (<2.0); pH Urine 5.5 (5.0-9.0)
[2022-08-03 17:52] LABS: Beta-Hydroxybutyrate/Acetoacetate 3.13 mmol/L (0.02-0.27)
[2022-08-03 17:54] LABS: Glucose Point of Care > 500 mg/dl (65-105)
[2022-08-03 17:55] VITALS: BP 145/102; PULSE 120; RESP 20; O2SAT 95
[2022-08-03 17:55] LABS: Alanine Aminotransferase 70 U/L (6-35); Alkaline Phosphatase 119 U/L (38-126); Anion Gap 20 mmol/L (8-16); Aspartate Amino Transferase 37 U/L (14-36); Bilirubin,Total 0.7 mg/dL (0.2-1.3); Blood Urea Nitrogen 24 mg/dL (7-17); Calcium 10.4 mg/dL (8.4-10.2); Carbon Dioxide 20 mmol/L (22-30); Chloride 96 mmol/L (98-107); Estimated Glomerular Filt Rate 60; Magnesium 2.2 mg/dL (1.6-2.3); Phosphorus 7.4 mg/dL (2.5-4.5); Potassium 5.1 mmol/L (3.4-5.0); Sodium 136 mmol/L (137-145)
[2022-08-03 17:56] LABS: Bacteria Urine Trace /hpf; Mucus Urine Rare /lpf; Squamous Epithelial Cell Urine Rare /hpf (Few); WBC Urine 0-3 /hpf
[2022-08-03 18:04] LABS: Glucose 1105 mg/dL (65-110)
[2022-08-03] MEDS: SODIUM CHLORIDE 0.9% IV 1,000 ML 999 ML IV CONT ×2 (18:13→18:44)
--- NOTE | 2022-08-03 18:17 | ED.RECABL ---
HPI - Recheck/Abnormal Lab/Rx General Chief Complaint: Recheck/Abnormal Lab/Rx Stated Complaint: N/V ACCUCK OVER 500 NO PREV DM Time Seen by Provider: 08/03/22 17:49 History of Present Illness HPI narrative: Patient is a 42-year-old female with a history of hypertension presenting with hyperglycemia. Patient states that over the last several weeks she has been increasingly thirsty and she has been urinating very frequently. She went to urgent care today and was noted to have a zbcsu-gq-turu glucose greater than 500 so she was sent here for evaluation. Patient states that she has been nauseated for the last 2 days and she had 1 episode of emesis earlier today. She denies any recent fevers or chills, cough, chest pain, shortness of breath, abdominal pain, diarrhea, dysuria, leg swelling. Related Data Home Medications Medication Instructions Recorded Confirmed No Home Medications 08/03/22 08/03/22 Allergies Allergy/AdvReac Type Severity Reaction Status Date / Time latex Allergy Intermediate Hives/Swelling Verified 08/03/22 18:36 with condoms artificial cinnamon Allergy Severe Anaphylaxis Uncoded 01/30/21 20:00 Review of Systems Review of Systems: All systems reviewed & are unremarkable except as noted in HPI and below PMFSH Past Medical History Medical History (Updated 08/05/22 @ 16:32 by Brigid Horton MD) Abnormal uterine bleeding due to leiomyoma of uterus Arthritis Depression Fibroid GERD (gastroesophageal reflux disease) HTN (hypertension) Migraine Morbid obesity with BMI of 40.0-44.9, adult Status post hysteroscopy Family History Family History (Updated 08/03/22 @ 21:53 by Jostin Perez RN) Father Acute myocardial infarction Sibling Diabetes mellitus Sibling Diabetes mellitus Grandparent Diabetes mellitus Mother Hypertension Social History Social History Smoking status: Never smoker Second hand tobacco smoke exposure: No Alcohol intake: current Drinks per week: 1 Alcohol use details: occassionally/socially Substance use: never Substance use type: does not use Lack of Transportation: No Lack of Food: Never True Current Housing: I Have Housing Concerned About Future Housing: No Difficulty Paying Gas/Electric Bills: No Difficulty Paying for Meds: No Currently Unemployed: No Education: Bachelor's Degree Difficulty w/ Childcare or Family Care: No Spiritual care concerns: No Exam Narrative: GENERAL: Well-appearing, well-nourished, and in no acute distress. Pleasant and cooperative HEAD: Normocephalic, atraumatic. EYES: PERRLA and EOMI. ENT: Nares clear, no rhinorrhea or epistaxis. Mucous membranes dry NECK: Supple. CHEST: Clear to auscultation. No respiratory distress. HEART: Regular rate and rhythm. No murmur heard. Normal peripheral pulses. ABDOMEN: Soft, nontender, nondistended, normal active bowel sounds. EXTREMITIES: Normal range of motion. No edema. SKIN: Warm, dry, no rash. NEURO: No focal deficits. Alert and oriented x3. PSYCH: Normal mood and affect. Course Vital Signs Vital signs: Vital Signs Temperature 97.3 F L 08/03/22 16:45 Pulse Rate 125 H 08/03/22 16:45 Respiratory Rate 20 08/03/22 16:45 Blood Pressure 148/101 H 08/03/22 16:45 Pulse Oximetry 95 08/03/22 16:45 Oxygen Delivery Room Air 08/03/22 16:45 Temperature 96.7 F L 08/05/22 15:12 Pulse Rate 92 08/05/22 15:12 Respiratory Rate 18 08/05/22 15:12 Blood Pressure 137/89 08/05/22 15:12 Pulse Oximetry 99 08/05/22 15:12 Oxygen Delivery Room Air 08/04/22 21:53 MDM - Recheck/Abnormal Lab/Rx MDM Narrative Medical decision making narrative: Patient is a 42-year-old female presenting with hyperglycemia. Patient is tachycardic, hypertensive. Exam remarkable for above. EKG with sinus tachycardia per my interpretation. Bloodwork with glu 1100, K 5.1, bicarb 20,
[2022-08-03 18:19] LABS: Alveolar/Arterial O2 Gradient 25.7 mmHg; Base Excess ABG -3.4 mEq/l (+/-2.0); Carboxyhemoglobin 1.3 % THb (0-2.0); Fractional Inspired Oxygen 21 %; HCO3 ABG 21.3 mEq/l (22.0-26.0); Methemoglobin ABG 0.2 %THb (0-1.5); Oxygen Content ABG 19.9 %vol (16.0-22.0); Oxygen Saturation ABG 95.6 % (95.0-100.0); Oxyhemoglobin 92.6 % THb (90.0-100.0); PCO2 ABG 37.2 mmHg (35.0-45.0); PO2 ABG 79.5 mmHg (80.0-100.0); PO2 FiO2 Ratio Arterial Blood 3.79 %; Reduced Hemoglobin 5.9 %THb (0-5.0); Total Hemoglobin 15.3 g/dL (12.0-18.0); pH ABG 7.375 (7.350-7.450)
[2022-08-03 18:20] LABS: Device ROOM AIR; Modified Allen's Test Pass; Site Drawn RIGHT RADIAL
--- NOTE | 2022-08-03 18:48 | PC.NURSE ---
Bedside urine not completed d/t past hysterectomy in the past two years at this hospital.
[2022-08-03 20:36] LABS: Hemoglobin A1C 12.1 % (<5.7)
[2022-08-03] MEDS: INSULIN HUMAN REGULAR (*BKC) 100 UNITS in SODIUM CHLORIDE 0.9% IV 99 ML 20.9 UNITS IV CONT (20:41)
[2022-08-03 20:42] LABS: Influenza A QL RT-PCR Negative (Negative); Influenza B QL RT-PCR Negative (Negative); RSV RNA, RT-PCR Negative (Negative); SARS-CoV-2 RNA PCR Negative
[2022-08-03] MEDS: INSULIN HUMAN REGULAR (*BKC) 100 UNITS/ML 11 UNITS IV PUSH (20:43)
[2022-08-03 20:50] LABS: Glucose Point of Care > 500 mg/dl (65-105)
[2022-08-03 20:59] VITALS: BP 134/74; PULSE 98; RESP 20; TEMP 36.7; O2SAT 98
[2022-08-03 21:31] VITALS: BP 130/92; PULSE 116; RESP 28; TEMP 37; O2SAT 97
[2022-08-03 21:39] VITALS: BMI 42.3
--- NOTE | 2022-08-03 21:44 | ADMGEN ---
This patient, Pratima Espinoza, was admitted to Intensive Care Unit-1. Patient/family oriented to hospital policies and general routines including ID bracelet, bed and alarms, visiting hours, pain management, procedures, bathroom and other care routines, personal items, smoking policy, room service/diet, and visiting hours. Information on how to activate the Rapid Response Team has been discussed. Patient/Family are encouraged to report perceived risks to care and to ask questions if they do not understand what they are told or what they should do.
[2022-08-03 22:00] VITALS: BP 139/89; PULSE 112; RESP 20; O2SAT 98
[2022-08-03] MEDS: SODIUM CHLORIDE 0.9% IV 1,000 ML 150 ML IV CONT (22:15)
[2022-08-03 23:05] LABS: Glucose Point of Care > 500 mg/dl (65-105)
[2022-08-03 23:05] LABS: Glucose Point of Care 364 mg/dl (65-105)
[2022-08-03 23:28] LABS: Anion Gap 13 mmol/L (8-16); Blood Urea Nitrogen 19 mg/dL (7-17); Calcium 9.2 mg/dL (8.4-10.2); Carbon Dioxide 24 mmol/L (22-30); Chloride 111 mmol/L (98-107); Estimated CRCL calculation 76 ml/min; Estimated Glomerular Filt Rate > 60; Glucose 400 mg/dL (65-110); Potassium 3.5 mmol/L (3.4-5.0); Sodium 148 mmol/L (137-145)
[2022-08-04] VITALS (16 sets, daily range): BP systolic 115–149; BP diastolic 74–96; PULSE 92–111; RESP 15–97; TEMP 35.9–36.9; O2SAT 25–100; BMI 42.3
[2022-08-04 00:04] LABS: Glucose Point of Care 316 mg/dl (65-105)
[2022-08-04 01:04] LABS: Glucose Point of Care 273 mg/dl (65-105)
[2022-08-04] MEDS: KCL 20 MEQ/D5/0.45% SOD CHL 1,000 ML 150 ML IV CONT (02:04)
[2022-08-04] MEDS: INSULIN HUMAN REGULAR (*BKC) 100 UNITS in SODIUM CHLORIDE 0.9% IV 99 ML 9.66 UNITS IV CONT (02:05)
[2022-08-04 02:10] LABS: Glucose Point of Care 198 mg/dl (65-105)
[2022-08-04 03:00] LABS: Glucose Point of Care 200 mg/dl (65-105)
[2022-08-04 03:28] LABS: Hematocrit 42.9 % (37.0-47.0); Hemoglobin 13.8 g/dL (12.0-15.0); Mean Corpuscular HGB Conc 32.2 g/dl (32-36); Mean Corpuscular Hemoglobin 25.5 pg (26-34); Mean Corpuscular Volume 79.3 fl (80-100); Mean Platelet Volume 12.4 fl (7.4-10.4); Platelet Count Result 260 k/mm3 (150-375); Red Blood Count 5.41 M/mm3 (4.2-5.4); Red Cell Distribution Width 13.8 % (11.5-14.5); White Blood Count 9.5 K/mm3 (4.5-10.0)
[2022-08-04 03:29] LABS: Anion Gap 8 mmol/L (8-16); Blood Urea Nitrogen 18 mg/dL (7-17); Calcium 9.3 mg/dL (8.4-10.2); Carbon Dioxide 26 mmol/L (22-30); Chloride 115 mmol/L (98-107); Estimated CRCL calculation 84 ml/min; Estimated Glomerular Filt Rate > 60; Glucose 196 mg/dL (65-110); Potassium 3.6 mmol/L (3.4-5.0); Sodium 149 mmol/L (137-145)
[2022-08-04 04:07] LABS: Glucose Point of Care 182 mg/dl (65-105)
[2022-08-04 05:03] LABS: Glucose Point of Care 167 mg/dl (65-105)
--- NOTE | 2022-08-04 05:09 | PM.IMHP ---
H&P: HPI History of Present Illness Date/Time: 08/04/22 05:09 Chief Complaint: Thirst Narrative: This is a 42-year-old female with past medical history significant for GERD, hypertension, migraine, obesity, presents to the emergency room due to blurry vision, thirst, urinary frequency for 2 weeks or so. Patient has been drinking large amounts of liquids. Denies any fevers, chills, no weight loss, no pain or burning with urination,. In emergency room patient was found to have a blood sugar of over 1000. Patient has been admitted to the intensive care unit. At the time of my visit patient denies any other complaints. Review of Systems Review of Systems: Blurry vision, thirst, urinary frequency. Constitutional: Constitutional: Denies chills, Denies fever(s), Denies malaise, Denies weakness and Denies weight loss Eyes: Eyes: Reports blurry vision ENT: Denies dysphagia and Denies odynophagia Cardiovascular: Cardiovascular: Denies chest pain, Denies lightheadedness and Denies palpitations Respiratory: Respiratory: Denies chest congestion, Denies cough, Denies excessive phlegm production, Denies pain on inspiration and Denies dyspnea on exertion Gastrointestinal: Gastrointestinal: Denies abdominal pain, Denies dyspepsia, Denies heartburn, Reports diarrhea, Reports nausea and Reports vomiting Genitourinary: Genitourinary: Denies dysuria Musculoskeletal: Musculoskeletal: Denies back pain, Reports myalgias, Denies joint swelling, Denies limited range of motion and Denies muscle weakness Integumentary/Breasts: Skin/Breast: Denies rash Neurologic: Denies vertigo, Denies dizziness, Denies focal weakness and Denies Sensory deficit (Neuro) Psychiatric: Psychiatric: Reports no additional psychiatric complaints and Reports as per HPI Endocrine: Endocrine: Denies cold intolerance, Denies heat intolerance, Reports polydipsia and Reports polyuria Hematologic/Lymphatic: Hematologic/Lymphatic: Reports no additional hematologic/lymphatic complaints and Reports as per HPI Allergic/Immunologic: Allergic/Immunologic: Reports no additional allergic/immunologic complaints and Reports as per HPI [facility] Past Medical History Medical History (Updated 08/04/22 @ 05:18 by Han Cunningham MD) Abnormal uterine bleeding due to leiomyoma of uterus Arthritis Depression Fibroid GERD (gastroesophageal reflux disease) HTN (hypertension) Migraine Morbid obesity with BMI of 40.0-44.9, adult Status post hysteroscopy Family History Family History (Updated 08/03/22 @ 21:53 by Jostin Perez RN) Father Acute myocardial infarction Sibling Diabetes mellitus Sibling Diabetes mellitus Grandparent Diabetes mellitus Mother Hypertension Social History Social History Smoking status: Never smoker Second hand tobacco smoke exposure: No Alcohol intake: current Drinks per week: 1 Alcohol use details: occassionally/socially Substance use: never Substance use type: does not use Lack of Transportation: No Lack of Food: Never True Current Housing: I Have Housing Concerned About Future Housing: No Difficulty Paying Gas/Electric Bills: No Difficulty Paying for Meds: No Currently Unemployed: No Education: Bachelor's Degree Difficulty w/ Childcare or Family Care: No Spiritual care concerns: No Meds Home Medications and Allergies Home Medications Medication Instructions Recorded Confirmed Type No Home Medications 08/03/22 08/03/22 History Allergies Allergy/AdvReac Type Severity Reaction Status Date / Time latex Allergy Intermediate Hives/Swelling Verified 08/03/22 18:36 with condoms artificial cinnamon Allergy Severe Anaphylaxis Uncoded 01/30/21 20:00 Vital Signs Vital Signs - 24 hr 08/03/22 16:45 08/03/22 17:55 08/03/22 21:31 Temperature 97.3 F L 98.6 F Pulse Rate 125 H 120 H 116 H Respiratory Rate 20 20 28 H Blood
[2022-08-04 06:09] LABS: Glucose Point of Care 133 mg/dl (65-105)
[2022-08-04] MEDS: INSULIN GLARGINE (*BKC) 100 UNITS/ML 32 UNITS SUB-Q (06:12)
[2022-08-04 07:00] LABS: Glucose Point of Care 139 mg/dl (65-105)
[2022-08-04 07:49] LABS: Anion Gap 8 mmol/L (8-16); Blood Urea Nitrogen 16 mg/dL (7-17); Calcium 8.9 mg/dL (8.4-10.2); Carbon Dioxide 25 mmol/L (22-30); Chloride 115 mmol/L (98-107); Estimated CRCL calculation 84 ml/min; Estimated Glomerular Filt Rate > 60; Glucose 128 mg/dL (65-110); Potassium 3.5 mmol/L (3.4-5.0); Sodium 148 mmol/L (137-145)
[2022-08-04 08:26] LABS: Glucose Point of Care 113 mg/dl (65-105)
[2022-08-04] MEDS: ENOXAPARIN 40 MG/0.4 ML SYRINGE SUB-Q (08:37)
[2022-08-04] MEDS: PANTOPRAZOLE SODIUM IV 40 MG VIAL IV PUSH (08:43)
--- NOTE | 2022-08-04 09:13 | WPDCNINT ---
Assessment and Plan Assessment and plan (1) Hyperosmolar hyperglycemic state (HHS): Code(s): E11.00 - Type 2 diabetes mellitus with hyperosmolarity without nonketotic hyperglycemic-hyperosmolar coma (NKHHC) Status: Acute Assessment and Plan: Patient presented with blood sugars of 1105 in the ER with positive beta hydroxybutyrate and urine ketones. -patient has been having a lot of thirst and drinking a lot of water. Patient also complaining of polyuria. On the day of admission she did go to the urgent care with blood sugars were elevated was sent to the ER. -she was given 2 L IV fluids, started on insulin infusion the transferred to the ICU for further management -patient transition to long-acting insulin and this and sliding scale insulin, will discontinue insulin infusion per protocol -will start diabetic diet -will have simulation educator and dietitian -hemoglobin A1c is 11.2 this admission (2) Psoriasis: Code(s): L40.9 - Psoriasis, unspecified Status: Acute Assessment and Plan: Patient states she takes Skyrizi (3) GERD (gastroesophageal reflux disease): Code(s): K21.9 - Gastro-esophageal reflux disease without esophagitis Status: Acute Assessment and Plan: Continue Protonix Plan DVT prophylaxis: Lovenox Stress ulcer prophylaxis: Proton Nutrition: Diabetic diet Code Status: Full code Critical Care Time Spent: 43 minutes Due to a high probability of clinically significant, life threatening deterioration, the patient required my highest level of preparedness to intervene emergently and I personally spent this critical care time directly and personally managing the patient. This critical care time included obtaining a history; examining the patient; pulse oximetry; ordering and review of studies; arranging urgent treatment with development of a management plan; evaluation of patient's response to treatment; frequent reassessment; and discussions with other providers. It was exclusive of separately billable procedures and treating other patients and teaching time. Please see Assessment and Plan section and the rest of the note for further information on patient assessment and treatment This dictation may have been done utilizing a voice recognition system. Attempts have been made to correct errors. However, there may be uncorrected grammatical, spelling, and recognitions errors present. Biological Science Technician Fish Consult Note Consult date: 08/04/22 Reason for consult: Hyperosmotic hyperglycemic state/DKA, new onset diabetes, hyperglycemia HPI: Pratima Espinoza is a 42 year old female with past medical history of psoriasis, arthritis, depression, fibroids GERD, essential hypertension, migraine presented the ED on 08/03/2022 with complains of hyperglycemia. Patient states that over the last several weeks she has been in increasingly thirsty and has been urinating very frequently. She also has been drinking a lot of fluids in the also commented on that and asked her to have herself checked up. She went to the urgent care and point of care glucose was greater than 500. She also had some nausea the last 2 days and vomited x1 on the day of admission. Denies any fevers, chills, chest pain, cough, shortness of breath, abdominal pain, diarrhea. In the ER blood sugars were 1105, potassium was 5.1, positive urine ketones, beta hydroxybutyrate. Patient was given 2 L of IV fluids and started on insulin infusion and transferred to the ICU from with the management. Patient seen and examined the ICU this morning, she has been transition to long-acting insulin early this morning, remains on insulin infusion per protocol. Patient denies any chest pain, shortness of breath, abdominal pain, nausea, vomiting at this time. Patient has had adequate urine output, hemodynamically stable, good O2 sats on room air. Denies any tobacco or illicit drug use. She states she drinks alcohol socially. Review of Syste
[2022-08-04 10:41] LABS: Anion Gap 7 mmol/L (8-16); Blood Urea Nitrogen 15 mg/dL (7-17); Calcium 8.4 mg/dL (8.4-10.2); Carbon Dioxide 24 mmol/L (22-30); Chloride 112 mmol/L (98-107); Estimated CRCL calculation 84 ml/min; Estimated Glomerular Filt Rate > 60; Glucose 258 mg/dL (65-110); Sodium 143 mmol/L (137-145)
[2022-08-04 11:37] LABS: Glucose Point of Care 277 mg/dl (65-105)
[2022-08-04] MEDS: INSULIN ASPART (*BKC) 100 UNITS/ML SUB-Q ×3 (11:37→23:31)
[2022-08-04] MEDS: ACETAMINOPHEN 325 MG TABLET 650 MG PO ×2 (13:26→19:43)
[2022-08-04 16:35] LABS: Glucose Point of Care 403 mg/dl (65-105)
[2022-08-04] MEDS: INSULIN GLARGINE (*BKC) 100 UNITS/ML 10 UNITS SUB-Q (17:15)
[2022-08-04] MEDS: INSULIN HUMAN REGULAR (*BKC) 100 UNITS/ML IV PUSH (17:16)
[2022-08-04 17:49] LABS: Glucose Point of Care 364 mg/dl (65-105)
[2022-08-04 20:41] LABS: Glucose Point of Care 409 mg/dl (65-105)
--- NOTE | 2022-08-04 21:03 | PC.NURSE ---
This patient, Pratima Espinoza, was transferred to [room 314 ] on 08/04/22 at 2103. Personal belongings sent with patient. Report given to [DRE Haque ]. Appropriate documentation sent with patient.
[2022-08-04] MEDS: INSULIN ASPART (*BKC) 100 UNITS/ML 6 UNITS SUB-Q (21:07)
[2022-08-04] MEDS: ONDANSETRON INJ 4 MG/2 ML VIAL IV PUSH (21:35)
[2022-08-04 22:07] LABS: Glucose Point of Care 375 mg/dl (65-105)
[2022-08-04 23:21] LABS: Glucose Point of Care 326 mg/dl (65-105)
[2022-08-05 01:09] LABS: Glucose Point of Care 296 mg/dl (65-105)
[2022-08-05 06:26] VITALS: BP 139/82; PULSE 88; RESP 18; TEMP 36.2; O2SAT 98
[2022-08-05 07:42] LABS: Glucose Point of Care 286 mg/dl (65-105)
[2022-08-05] MEDS: ENOXAPARIN 40 MG/0.4 ML SYRINGE SUB-Q (08:59)
[2022-08-05] MEDS: PANTOPRAZOLE SODIUM IV 40 MG VIAL IV PUSH (08:59)
[2022-08-05] MEDS: INSULIN GLARGINE (*BKC) 100 UNITS/ML 32 UNITS SUB-Q (08:59)
[2022-08-05] MEDS: INSULIN ASPART (*BKC) 100 UNITS/ML SUB-Q ×3 (09:00→17:42)
[2022-08-05 10:10] LABS: Basophils Percent Auto 0.8 % (0.2-1.2); Eosinophils Absolute Auto 0.2 K/mm3 (0-0.3); Eosinophils Percent Auto 4.7 % (0-4.4); Hematocrit 38.9 % (37.0-47.0); Immature Granulocyte Absolute 0.01 K/mm3 (0.00-0.031); Immature Granulocyte Percent A 0.2 % (0-0.5); Lymphocytes Absolute Auto 2.18 K/mm3 (0.9-3.2); Lymphocytes Percent Auto 44.3 % (18.3-44.2); Mean Corpuscular HGB Conc 30.8 g/dl (32-36); Mean Corpuscular Hemoglobin 25.6 pg (26-34); Mean Corpuscular Volume 83.1 fl (80-100); Mean Platelet Volume 12.1 fl (7.4-10.4); Monocytes Absolute Auto 0.3 K/mm3 (0.1-0.6); Monocytes Percent Auto 5.1 % (2.6-8.5); Neutrophils Absolute Auto 2.2 K/mm3 (1.3-6.7); Neutrophils Percent Auto 44.9 % (45.5-73.1); Platelet Count Result 194 k/mm3 (150-375); Red Blood Count 4.68 M/mm3 (4.2-5.4); Red Cell Distribution Width 13.6 % (11.5-14.5); White Blood Count 4.9 K/mm3 (4.5-10.0)
[2022-08-05 10:19] LABS: Alanine Aminotransferase 60 U/L (6-35); Albumin Level 3.7 g/dL (3.5-5.1); Alkaline Phosphatase 63 U/L (38-126); Anion Gap 5 mmol/L (8-16); Aspartate Amino Transferase 60 U/L (14-36); Bilirubin,Total 0.6 mg/dL (0.2-1.3); Blood Urea Nitrogen 15 mg/dL (7-17); Carbon Dioxide 27 mmol/L (22-30); Chloride 105 mmol/L (98-107); Estimated CRCL calculation 85 ml/min; Estimated Glomerular Filt Rate > 60; Glucose 324 mg/dL (65-110); Magnesium 1.7 mg/dL (1.6-2.3); Sodium 137 mmol/L (137-145)
[2022-08-05 11:25] LABS: Glucose Point of Care 312 mg/dl (65-105)
--- NOTE | 2022-08-05 14:38 | PM.IMPN ---
Progress Note: A&P Assessment and Plan (1) Hyperosmolar hyperglycemic state (HHS): Code(s): E11.00 - Type 2 diabetes mellitus with hyperosmolarity without nonketotic hyperglycemic-hyperosmolar coma (NKHHC) Status: Acute Assessment and Plan: Patient presented with blood sugars of 1105 in the ER with positive beta hydroxybutyrate and urine ketones. -patient has been having a lot of thirst and drinking a lot of water. Patient also complaining of polyuria. On the day of admission she did go to the urgent care with blood sugars were elevated was sent to the ER. There is associated recent weight loss. She has family history of type 1 diabetes See also has a personal history of plaque psoriasis Most likely Franky has type 1 diabetes. Will check anti LEEROY antibodies as well as islet cell antibodies Start Lantus 32 units daily at prandial insulin with NovoLog and adjust the dose as needed On diabetic diet consult special educator A1c 11.2 (2) Psoriasis: Code(s): L40.9 - Psoriasis, unspecified Status: Acute Assessment and Plan: Patient states she takes Skyrizi (3) GERD (gastroesophageal reflux disease): Code(s): K21.9 - Gastro-esophageal reflux disease without esophagitis Status: Acute Assessment and Plan: Continue Protonix Plan DVT prophylaxis: Lovenox Stress ulcer prophylaxis: Proton Nutrition: Diabetic diet Code Status: Full code Subjective Date/time seen: 08/05/22 14:38 Interval history: No overnight events. Feeling better. Blood sugar trend reviewed. Personal history of plaque psoriasis. Family history of type 1 diabetes. Review of Systems Review of Systems: All systems reviewed & are unremarkable except as noted in HPI and below Exam Narrative: General: Pleasant female in no acute distress. HEENT:? Pupils equal and reactive was sclera is clear, moist oral mucosa Neck:? Supple Respiratory:? Clear to auscultation bilaterally Cardiac:? S1-S2 normal, regular rate and rhythm Abdomen:? Soft, nontender, nondistended, obese Extremities:? Warm, no edema, palpable pedal pulses Neuro:? Patient is awake, alert, oriented x3, no focal neurologic deficits Skin:? Lesions of psoriasis noted on the elbows and knees Psych:? Normal affect and mentation Objective Data Vital Signs Vital Signs: Vital Signs - 24 hr 08/04/22 16:00 08/04/22 16:00 08/04/22 20:00 Temperature Pulse Rate 93 92 Respiratory Rate 20 Blood Pressure 121/86 Pulse Oximetry 99 Oxygen Delivery Room Air 08/04/22 21:53 08/04/22 22:17 08/05/22 06:26 Temperature 96.7 F L 97.2 F L Pulse Rate 95 88 Respiratory Rate 18 18 Blood Pressure 149/96 H 139/82 Pulse Oximetry 99 98 Oxygen Delivery Room Air Intake/Output Intake/Output: Intake & Output 08/02/22 08/03/22 08/04/22 08/05/22 23:59 23:59 23:59 23:59 Intake Total 1999 3483.31 1258 Output Total 2049 Balance 1999 1433.31 1258 Meds/Results Medications: Active Medications Generic Name Dose Route Start Last Admin Trade Name Freq PRN Reason Stop Dose Admin Acetaminophen 650 mg 08/04/22 13:13 08/04/22 19:43 Acetaminophen 325 Mg Tablet PO 650 mg Q6H PRN Administration Mild Pain (1-3) or Fever Dextrose 12.5 gm 08/04/22 07:04 Dextrose 50% 25 Gm/50 Ml Syringe IV PUSH PRN PRN Hypoglycemia Protocol Enoxaparin Sodium 40 mg 08/04/22 09:00 08/05/22 08:59 Enoxaparin 40 Mg/0.4 Ml Syringe SUB-Q 40 mg DAILY NATALIE Administration Glucagon 1 mg 08/04/22 07:04 Glucagon For Inj 1 Mg Vial IM PRN PRN Hypoglycemia Protocol Glucose 15 gm 08/04/22 07:04 Glucose Oral Gel 15 Gm Of Glucse In 37.5 Gm Tube PO PRN PRN Hypoglycemia Protocol Dextrose 1,000 mls @ 100 mls/hr 08/04/22 07:04 Dextrose 5% 1,000 Ml IVPB PRN PRN Hypoglycemia Protocol Insulin Aspart 3 - 6 units 08/04/22 08:00 08/05/22 12:31 Insulin
[2022-08-05 15:12] VITALS: BP 137/89; PULSE 92; RESP 18; TEMP 35.9; O2SAT 99
[2022-08-05 16:25] LABS: Glucose Point of Care 310 mg/dl (65-105)
[2022-08-05] MEDS: INSULIN ASPART (*BKC) 100 UNITS/ML 11 UNITS SUB-Q (17:43)
[2022-08-05 20:42] LABS: Glucose Point of Care 346 mg/dl (65-105)
[2022-08-05] MEDS: ACETAMINOPHEN 325 MG TABLET 650 MG PO (21:26)
[2022-08-05 22:00] VITALS: BP 133/81; PULSE 90; RESP 18; TEMP 36; O2SAT 98
[2022-08-06 05:55] LABS: Basophils Percent Auto 0.7 % (0.2-1.2); Eosinophils Absolute Auto 0.2 K/mm3 (0-0.3); Eosinophils Percent Auto 3.8 % (0-4.4); Hematocrit 37.8 % (37.0-47.0); Immature Granulocyte Absolute 0.02 K/mm3 (0.00-0.031); Immature Granulocyte Percent A 0.3 % (0-0.5); Lymphocytes Absolute Auto 2.59 K/mm3 (0.9-3.2); Lymphocytes Percent Auto 44.8 % (18.3-44.2); Mean Corpuscular HGB Conc 31.7 g/dl (32-36); Mean Corpuscular Hemoglobin 25.3 pg (26-34); Mean Corpuscular Volume 79.7 fl (80-100); Mean Platelet Volume 12.5 fl (7.4-10.4); Monocytes Absolute Auto 0.3 K/mm3 (0.1-0.6); Monocytes Percent Auto 5.5 % (2.6-8.5); Neutrophils Absolute Auto 2.6 K/mm3 (1.3-6.7); Neutrophils Percent Auto 44.9 % (45.5-73.1); Platelet Count Result 193 k/mm3 (150-375); Red Blood Count 4.74 M/mm3 (4.2-5.4); Red Cell Distribution Width 13.2 % (11.5-14.5); White Blood Count 5.8 K/mm3 (4.5-10.0)
[2022-08-06 06:00] VITALS: BP 135/84; PULSE 78; RESP 14; TEMP 36.2; O2SAT 100
[2022-08-06 06:10] LABS: Alanine Aminotransferase 58 U/L (6-35); Albumin Level 3.6 g/dL (3.5-5.1); Alkaline Phosphatase 55 U/L (38-126); Anion Gap 6 mmol/L (8-16); Aspartate Amino Transferase 54 U/L (14-36); Bilirubin,Total 0.5 mg/dL (0.2-1.3); Blood Urea Nitrogen 16 mg/dL (7-17); Carbon Dioxide 26 mmol/L (22-30); Chloride 101 mmol/L (98-107); Estimated CRCL calculation 107 ml/min; Estimated Glomerular Filt Rate > 60; Glucose 274 mg/dL (65-110); Magnesium 1.9 mg/dL (1.6-2.3); Potassium 3.6 mmol/L (3.4-5.0); Sodium 133 mmol/L (137-145)
[2022-08-06 08:10] LABS: Glucose Point of Care 296 mg/dl (65-105)
[2022-08-06] MEDS: INSULIN ASPART (*BKC) 100 UNITS/ML SUB-Q ×2 (08:51→12:37)
[2022-08-06] MEDS: ENOXAPARIN 40 MG/0.4 ML SYRINGE SUB-Q (08:51)
[2022-08-06] MEDS: PANTOPRAZOLE SODIUM IV 40 MG VIAL IV PUSH (08:51)
[2022-08-06] MEDS: INSULIN GLARGINE (*BKC) 100 UNITS/ML 36 UNITS SUB-Q (08:52)
[2022-08-06 11:42] LABS: Glucose Point of Care 299 mg/dl (65-105)
--- NOTE | 2022-08-06 12:12 | PM.DS ---
DS: Admitting Diagnosis Discharge Date 08/06/2022 Admitting Diagnosis Hyperglycemia DS: Discharge Diagnosis Discharge Diagnosis (1) Hyperosmolar hyperglycemic state (HHS): Code(s): E11.00 - Type 2 diabetes mellitus with hyperosmolarity without nonketotic hyperglycemic-hyperosmolar coma (NKHHC) Status: Acute (2) Psoriasis: Code(s): L40.9 - Psoriasis, unspecified Status: Acute (3) GERD (gastroesophageal reflux disease): Code(s): K21.9 - Gastro-esophageal reflux disease without esophagitis Status: Acute DS: Summary Hospital Course Hospital Course: # Hyperosmolar hyperglycemic state (HHS): Patient presented with blood sugars of 1105 in the ER with positive beta hydroxybutyrate and urine ketones. -patient has been having a lot of thirst and drinking a lot of water.? Patient also complaining of polyuria.? On the day of admission she did go to the urgent care with blood sugars were elevated was sent to the ER.? There is associated recent weight loss.? She has family history of type 1 diabetes See also has a personal history of plaque psoriasis Most likely she has type 1 diabetes.? Ordered anti LEEROY antibodies as well as islet cell antibodies which is pending Start Lantus 32 units daily at prandial insulin with NovoLog and adjust the dose as needed On diabetic diet consult clinical systems educator A1c 11.2 Lantus dose adjusted and will need to be monitored as outpatient basis Need to see rough rounder as an outpatient basis # psoriasis: Patient states she takes Skyrizi # GERD: Continue Protonix DVT prophylaxis:? Lovenox Stress ulcer prophylaxis:? Proton Nutrition:? Diabetic diet Code Status:? Full code Time Spent with Patient Time attestation: Total time spent providing and/or coordinating discharge services: 35 minutes Exam Narrative: General: Pleasant female in no acute distress. HEENT:? Pupils equal and reactive was sclera is clear, moist oral mucosa Neck:? Supple Respiratory:? Clear to auscultation bilaterally Cardiac:? S1-S2 normal, regular rate and rhythm Abdomen:? Soft, nontender, nondistended, obese Extremities:? Warm, no edema, palpable pedal pulses Neuro:? Patient is awake, alert, oriented x3, no focal neurologic deficits Skin:? Lesions of psoriasis noted on the elbows and knees Psych:? Normal affect and mentation DS: Data Data Completed and Pending Labs on day of discharge: Labs from last 24 hours 08/06/22 08/06/22 08/06/22 11:36 07:59 05:37 WBC RBC Hgb Hct MCV MCH MCHC RDW Plt Count MPV Immature Gran % (Auto) Neut % (Auto) Lymph % (Auto) Holt % (Auto) Eos % (Auto) Baso % (Auto) Lymph # (Auto) Holt # (Auto) Eos # (Auto) Baso # (Auto) Abs Immat Gran (auto) Absolute Neuts (auto) Absolute Nucleated RBC Nucleated RBC % Sodium 133 L Potassium 3.6 Chloride 101 Carbon Dioxide 26 Anion Gap 6 L BUN 16 Creatinine 0.70 Estim Creat Clear Calc 107 Estimated GFR > 60 Glucose 274 H POC Capillary Glucose 299 H 296 H Serum Osmolality Calcium 8.0 L Magnesium 1.9 Total Bilirubin 0.5 AST 54 H ALT 58 H Alkaline Phosphatase 55 Total Protein 7.0 Albumin 3.6 Islet Cell Ab Screen Islet Ab Scn Res Rcv [id number] Ab 08/06/22 08/05/22 08/05/22 05:37 19:57 16:16 WBC 5.8 RBC 4.74 Hgb 12.0 Hct 37.8 MCV 79.7 L MCH 25.3 L MCHC 31.7 L RDW 13.2 Plt Count 193 MPV 12.5 H Immature Gran % (Auto) 0.3 Neut % (Auto) 44.9 L Lymph % (Auto) 44.8 H Holt % (Auto) 5.5 Eos % (Auto) 3.8 Baso % (Auto) 0.7 Lymph # (Auto) 2.59 Holt # (Auto) 0.3 Eos # (Auto) 0.2 Baso # (Auto) 0.0 Abs Immat Gran (auto) 0.02 Absolute Neuts (auto) 2.6 Absolute Nucleated RBC 0.0 Nucleated RBC % 0.0 Sodium Potassium Chloride Carbon Dioxide Anion Gap BUN Creatinine
[2022-08-06] MEDS: INSULIN ASPART (*BKC) 100 UNITS/ML 12 UNITS SUB-Q (12:37)
[2022-08-08 16:04] LABS: Glutamic acid decarboxylase AA <5 IU/mL (<5)
--- NOTE | 2022-08-09 07:36 | PC.NURSE ---
Initial DSMT [facility] M[facility]. Unable to find number for PCP.
[2022-08-19 16:33] LABS: Islet Cell Antibody Screen NEGATIVE (NEGATIVE)
== END 2022-08-06 13:25 | disposition home or self-care (01) | DRG 638 ==
LOC: ANHED 18:38 → ANHICU 20:57 → ANH3MEDSUR 08-04 21:19
PROVIDERS: Emergency Medicine; Physician Assistant; Admitting Provider Internal Medicine; Emergency Provider Emergency Medicine; PCP Physician Assistant; Visit Provider Internal Medicine
DX: E11.00 Type 2 diabetes mellitus with hyperosmolarity without nonketotic hyperglycemic-hyperosmolar coma (NKHHC) (principal); Z68.41 Body mass index [BMI] 40.0-44.9, adult; L40.9 Psoriasis, unspecified; K21.9 Gastro-esophageal reflux disease without esophagitis; E66.01 Morbid (severe) obesity due to excess calories; F32.A Depression, unspecified; Z20.822 Contact with and (suspected) exposure to COVID-19; Z91.040 Latex allergy status; Z91.018 Allergy to other foods; Z82.49 Family history of ischemic heart disease and other diseases of the circulatory system; Z83.3 Family history of diabetes mellitus
CPT/HCPCS: 36415; 36600; 80048; 80053; 81001; 82010; 82375; 82805; 82948; 83036; 83050; 83735; 83930; 84100; 85025; 85027; 86341; 87637; 96361; 96374; 99285; A9270; C9113; J1650; J1815; J2405; J3480; J7030

== ENCOUNTER 2024-05-03 11:02 | Emergency (ER) | payer OTHER, SELFPAY ==
[2024-05-03 11:27] VITALS: BP 144/90; PULSE 89; RESP 20; TEMP 37.3; O2SAT 98
[2024-05-03 12:03] LABS: EDUAAPPEAR Cloudy; EDUABILI Negative (Negative); EDUABLOOD 2+ (Negative); EDUACOLOR1 Yellow; EDUAGLUCOSE Negative (Negative); EDUAKETONE Negative (Negative); EDUALEUKO Negative (Negative); EDUANITRATE Negative (Negative); EDUAPH 5.5; EDUAPROTEIN 1+ (Negative); EDUAUROBILI 0.2
--- NOTE | 2024-05-03 20:02 | ED.GENADULT ---
HPI - General Adult General Chief complaint: Urogenital-Female Stated complaint: uti symptoms Time Seen by Provider: 05/03/24 11:34 Source: patient, RN notes reviewed and old records reviewed Mode of arrival: ambulatory Limitations: no limitations History of Present Illness HPI narrative: 43-year-old female to [facility] with complaint pain with completion of urination For 3 days and vaginal itching for 2 weeks. Patient attempted to treat vaginal itching at home with [id number] treatments without relief. patient denies vaginal discharge, hematuria, frequency, abdominal pain, flank pain. Patient requesting STI testing. Related Data Home Medications Medication Instructions Recorded Confirmed aspirin 81 mg tablet,delayed 81 mg PO DAILY 05/03/24 05/03/24 release atorvastatin 10 mg tablet 10 mg PO QHS 05/03/24 05/03/24 metformin 500 mg tablet,extended 500 mg PO DAILY 05/03/24 05/03/24 release 24 hr risankizumab-rzaa 150 mg/mL DIRECTED 05/03/24 subcutaneous pen injector (Skyrizi) semaglutide 1 mg/dose (4 mg/3 mL) 1 mg subcut WEEKLY 05/03/24 05/03/24 subcutaneous pen injector (Ozempic) venlafaxine 150 mg 150 mg PO DAILY 05/03/24 05/03/24 capsule,extended release 24 hr Allergies Allergy/AdvReac Type Severity Reaction Status Date / Time cinnamon Allergy Severe Anaphylaxis Verified 05/03/24 12:11 latex Allergy Intermediate Hives/Swelling Verified 05/03/24 12:11 with condoms Review of Systems Review of Systems: All systems reviewed & are unremarkable except as noted in HPI and below Constitutional: Constitutional: Reports no additional constitutional complaints Eyes: Eyes: Reports no additional eye complaints ENT: Reports system reviewed and no additional complaints, except as documented Cardiovascular: Cardiovascular: Reports no additional cardiovascular complaints, Denies chest pain and Denies dyspnea Respiratory: Respiratory: Reports no additional respiratory complaints, Denies cough and Denies dyspnea Genitourinary: Genitourinary: Reports as per HPI, Reports dysuria and Reports vaginal pruritus Musculoskeletal: Musculoskeletal: Reports no additional musculoskeletal complaints Neurologic: Reports system reviewed and no additional complaints, except as documented Psychiatric: Psychiatric: Reports no additional psychiatric complaints PMFSH Past Medical History Medical History Abnormal uterine bleeding due to leiomyoma of uterus Arthritis Depression Fibroid GERD (gastroesophageal reflux disease) HTN (hypertension) Migraine Morbid obesity with BMI of 40.0-44.9, adult Status post hysteroscopy Family History Family History Father Acute myocardial infarction Sibling Diabetes mellitus Sibling Diabetes mellitus Grandparent Diabetes mellitus Mother Hypertension Social History Social History Smoking status: Never smoker Second hand tobacco smoke exposure: No Alcohol intake: current Drinks per week: 1 Alcohol use details: occassionally/socially Substance use: never Substance use type: does not use Lack of Transportation: No Lack of Food: Never True Current Housing: I Have Housing Concerned About Future Housing: No Difficulty Paying Gas/Electric Bills: No Difficulty Paying for Meds: No Currently Unemployed: No Education: Bachelor's Degree Difficulty w/ Childcare or Family Care: No Living arrangements: alone Spiritual care concerns: No Comments At the time of my signature, I reviewed and agree with the nursing past medical, surgical, social, and family history. There is no relevant family history pertinent to the patient complaint. Exam Const: General: cooperative, healthy appearing, comfortable, no acute distress, alert and well nourished Nutritional Appearance: well nourished Orientation/consciousness: patient oriented x3 Limitations: no limitations HENMT: Head: normal to inspection Ears: external ears normal Face/Nose/Sinus: Normal external nose present, Normal nares present, normal facial exam, No erythema and No edema Face and sinus: normal facial exam, no erythema and no edema Mouth: Yes Normal oral and palatal mucosa present Eyes: General: appearance normal, both eyes and all related structures Neck: Neck: normal visual inspection, full ROM and no meningeal signs Lymphatic: no lymphadenopathy noted and no lymphedema noted Chest: Chest palpation & inspection: normal inspection of the chest Resp: Effort & Inspection: normal respiratory effort and able to speak in complete sentences Auscultation: clear to auscultation bilaterally Cardio: Jugular venous distension: no JVD Rate: regular rate Rhythm: regular rhythm Back/Spine/Pelvis: Cervical Spine: cervical ROM normal Skin: General skin exam: normal color, no rashes or lesions noted and turgor normal Neuro: General: patient oriented x3, gait normal, moves all extremities and no meningeal signs Speech: normal speech Gait exam (Neuro): Normal gait present Extrem: General: normal to inspection, full ROM and capillary refill normal Psych: Appearance: grossly normal and well kempt Course Course Emergency Course: Some parts of this dictation were generated by voice recognition software and may contain typographical and/or grammatical inaccuracies. Level of Care: Express Care Visit Vital Signs Vital signs: Vital Signs Temperature 37.3 C 05/03/24 11:27 Pulse Rate 89 05/03/24 11:27 Respiratory Rate 20 05/03/24 11:27 Blood Pressure 144/90 H 05/03/24 11:27 Pulse Oximetry 98 05/03/24 11:27 Oxygen Delivery Room Air 05/03/24 11:27 Temperature 37.3 C 05/03/24 11:27 Pulse Rate 89 05/03/24 11:27 Respiratory Rate 20 05/03/24 11:27 Blood Pressure 144/90 H 05/03/24 11:27 Pulse Oximetry 98 05/03/24 11:27 Oxygen Delivery Room Air 05/03/24 11:27 reviewed Medical Decision Making MDM Narrative Medical decision making narrative: 43-year-old female to [facility] with complaint pain with completion of urination For 3 days and vaginal itching for 2 weeks. Patient attempted to treat vaginal itching at home with [id number] treatments without relief. patient denies vaginal discharge, hematuria, frequency, abdominal pain, flank pain. Patient requesting STI testing. Patient exam unremarkable. UA negative for UTI in clinic. Culture sent. Patient is sitting comfortably in exam room nontoxic in appearance. Patient appropriate for outpatient treatment and follow-up. Discharge instructions reviewed with patient, as well as provided in writing per nursing staff. The instructions also include specific and strict return/GO TO THE ER as well as f/u information. All questions have been answered, and the patient deny any further questions with discharge and discharge plan. Some parts of this dictation were generated by voice recognition software and may contain typographical and/or grammatical inaccuracies. Differential Diagnosis Differential Diagnosis: Yeast infection, STI, urinary tract infection, acute cystitis Vital Signs Vital Signs: Vital Signs Temperature 37.3 C 05/03/24 11:27 Pulse Rate 89 05/03/24 11:27 Respiratory Rate 20 05/03/24 11:27 Blood Pressure 144/90 H 05/03/24 11:27 Pulse Oximetry 98 05/03/24 11:27 Oxygen Delivery Room Air 05/03/24 11:27 Temperature 37.3 C 05/03/24 11:27 Pulse Rate 89 05/03/24 11:27 Respiratory Rate 20 05/03/24 11:27 Blood Pressure 144/90 H 05/03/24 11:27 Pulse Oximetry 98 05/03/24 11:27 Oxygen Delivery Room Air 05/03/24 11:27 Lab Data Labs: Lab Results 05/03/24 05/03/24 Range/Units 11:50 12:06 POC Urine Color Yellow POC Urine Clarity Cloudy POC Urine pH 5.5 POC Ur Specif [place] 1.030 POC Urine Protein 1+ (Negative) POC Ur Glucose (UA) Negative (Negative) POC Urine Ketones Negative (Negative) POC Urine Blood 2+ (Negative) POC Urine Nitrite Negative (Negative) POC Urine Bilirubin Negative (Negative) POC Urine Urobilinogen 0.2 POC U Leukocyte Esteras Negative (Negative) C. trachomatis (PCR) Pending N. gonorrhoeae (PCR) Pending T. vaginalis (PCR) Pending Discharge Plan Discharge Clinical Impression: Yeast infection Patient Disposition: Home, Self-Care Condition: Stable Instructions: Yeast Infection (ED) Additional Instructions: We will send a urine culture off to the lab; if the culture identifies an organism that the prescribed antibiotic will not treat, you will receive a phone call from an urgent care staff member and an appropriate antibiotic will be prescribed. -Your symptoms should begin to improve within a day of starting antibiotics. But you should finish all the antibiotic pills you get. Otherwise your infection might come back. -Also recommend: drink more fluid. It might help flush out germs, and it does no harm -Tylenol/ibuprofen as needed for pain -Follow-up with your primary care provider for urine recheck OR if your symptoms persist, change or worsen significantly before you can contact your personal physician then please, without delay, go to the emergency department for further evaluation. Prescriptions: New fluconazole [Diflucan] 100 mg tablet 100 mg PO DAILY Qty: 1 0RF No Action Ozempic 1 mg/dose (4 mg/3 mL) pen injector 1 mg SUBCUT WEEKLY aspirin 81 mg tablet,delayed release (DR/EC) 81 mg PO DAILY atorvastatin 10 mg tablet 10 mg PO QHS Skyrizi 150 mg/mL pen injector DIRECTED venlafaxine 150 mg capsule,extended release 24hr 150 mg PO DAILY metformin 500 mg tablet extended release 24 hr 500 mg PO DAILY insulin glargine [Lantus Solostar U-100 Insulin] 100 unit/mL (3 mL) insulin pen 40 unit subcut QAM Qty: 15 0RF insulin aspart U-100 [Novolog FlexPen U-100 Insulin] 100 unit/mL (3 mL) insulin pen 12 unit subcut TID Qty: 15 0RF (DME) blood-glucose meter [OneTouch Verio Flex meter] Mis Qty: 1 0RF Rx Instructions: May substitute to in-stock meter and/or covered by insurance. Use As Directed (DME) OneTouch Verio test strips Strip Qty: 1 0RF Rx Instructions: May substitute to in-stock and/or covered by insurance strips. Use As Directed (DME) pen needle, diabetic [BD Ultra-Fine Beth Pen Needle] 32 gauge x 5/32 needle Qty: 1 0RF Rx Instructions: May substitute to meet patient needs. Use As Directed (DME) insulin syringe-needle U-100 [BD Veo Insulin Syringe UF] 1 mL 31 gauge x 15/64 syringe Qty: 1 0RF Rx Instructions: 1 mL syringe for doses up to 100 units. May substitute to meet patient needs. Use As Directed (DME) lancets [[place] ChassisTouch Delica Plus Lancet] 30 gauge misc Qty: 1 0RF Rx Instructions: May substitute to in-stock and/or covered by insurance lancets. Use As Directed Follow-up/Referrals: UNKNOWN,DOCTOR [Primary Care Provider] -
[2024-05-03 20:48] LABS: Trichomonas Vag PCR DETECTED (NOT DETECTE)
[2024-05-03 21:29] LABS: Chlamydia trachomatis NOT DETECTED (NOT DETECTE); Neisseria gonorrhoeae PCR NOT DETECTED (NOT DETECTE)
== END 2024-05-03 12:10 | disposition home or self-care (01) ==
PROVIDERS: Emergency Provider Nurse Practitioner Family
DX: B37.31 Acute candidiasis of vulva and vagina (principal); A59.9 Trichomoniasis, unspecified; M19.90 Unspecified osteoarthritis, unspecified site; K21.9 Gastro-esophageal reflux disease without esophagitis; I10 Essential (primary) hypertension; E66.01 Morbid (severe) obesity due to excess calories; Z68.41 Body mass index [BMI] 40.0-44.9, adult; F32.A Depression, unspecified
CPT/HCPCS: 81003; 87086; 87491; 87591; 87661; 99213; G0463